=== PATIENT | female | born 1995 ===

== ENCOUNTER → 2025-02-04 | Outpatient (CLI) | payer OTHER | LOC: LAB 16:13 → LAB SHORT 16:13 | DX: O09.93 Supervision of high risk pregnancy, unspecified, third trimester (principal) | CPT/HCPCS: 87081; 87150 ==

== ENCOUNTER 2025-02-25 16:44 | Inpatient (IN) | payer OTHER ==
[2025-02-25] VITALS (13 sets, daily range): BP systolic 112–155; BP diastolic 60–94
[~2025-02-25] VITALS: Ht 165.1 cm; Wt 97.0 kg
[2025-02-25] MEDS ORDERED: Misoprostol 200 MCG Tab PR PRN (17:20)
[2025-02-25] MEDS ORDERED: ePHEDrine Sulfate 50 MG/ML 1ML Injection XX PRN (17:20)
[2025-02-25] MEDS ORDERED: Lactated Ringer's 1,000 ML IV SCH ×3 (17:20)
[2025-02-25] MEDS ORDERED: Lactated Ringer's 1,000 ML IV PRN (17:20)
[2025-02-25] MEDS ORDERED: Acetaminophen 500 MG Tab PO PRN ×2 (17:20→23:55)
[2025-02-25] MEDS ORDERED: Ondansetron HCl 2 MG / ML 2ML Vial IV PRN (17:20)
[2025-02-25] MEDS ORDERED: Methylergonovine Maleate 0.2MG / ML 1ML Amp IM PRN (17:20)
[2025-02-25] MEDS ORDERED: OXYTOCIN/RINGER'S LACTATE 500 ML IV PRN (17:20)
[2025-02-25] MEDS ORDERED: OXYTOCIN/RINGER'S LACTATE 500 ML IV SCH (17:20)
[2025-02-25] MEDS ORDERED: Misoprostol 200 MCG Tab BC PRN (17:20)
[2025-02-25] MEDS ORDERED: Carboprost Tromethamine 250 MCG/ML 1ML Amp IM PRN ×2 (17:20→23:55)
[2025-02-25] MEDS ORDERED: Oxytocin 10 Unit / ML Vial IM PRN (17:20)
[2025-02-25] MEDS ORDERED: FentaNYL 2mcg/ml-Bup 0.1% Epd 250 ML EPI PRN (17:20)
[2025-02-25] MEDS ORDERED: FentaNYL Citrate 50 MCG/ML 2 ML Injection IV PRN (17:25)
[2025-02-25] MEDS ORDERED: Calcium Carbonate 500 MG Tab Chew PO PRN (17:25)
[2025-02-25] MEDS ORDERED: OXYTOCIN/RINGER'S LACTATE 500 ML IV ONE (17:41)
[2025-02-25] MEDS ORDERED: Lactated Ringer's 1,000 ML IV ONE (17:41)
[2025-02-25] MEDS ORDERED: SYNTHROID100 M14 PO (17:43)
[2025-02-25] MEDS ORDERED: ZOLOFT10013 PO (17:45)
[2025-02-25] MEDS ORDERED: Tranexamic Acid 100 ML IV PRN (17:50)
[2025-02-25 18:14] LABS: BASOPHILS ABSOLUTE AUTO 0.03 K/mm3 (0.00-0.23); BASOPHILS PERCENT AUTO 0 % (0-2); EOSINOPHILS ABSOLUTE AUTO 0.25 K/mm3 (0.00-0.68); EOSINOPHILS PERCENT AUTO 3 % (0-6); Hematocrit 34.1 % (33.0-51.0); Hemoglobin 11.4 g/dL (11.5-16.0); IMMATURE GRAN ABSOLUTE AUTO 0.05 K/mm3 (0.00-0.10); IMMATURE GRAN PERCENT AUTO 1 % (0-1); LYMPHOCYTES ABSOLUTE AUTO 1.92 K/mm3 (0.84-5.20); LYMPHOCYTES PERCENT AUTO 19 % (21-46); MONOCYTES ABSOLUTE AUTO 0.65 K/mm3 (0.16-1.47); MONOCYTES PERCENT AUTO 7 % (4-13); Mean Corpuscular HGB Conc 33.4 g/dL (31.5-36.5); Mean Corpuscular Volume 81 fL (80-100); NEUTROPHILS ABSOLUTE AUTO 7.15 K/mm3 (1.96-9.15); NEUTROPHILS PERCENT AUTO 71 % (41-73); Platelet Count 218 K/mm3 (150-400); RDW Coefficient Variation 14.3 % (11.7-14.2); RDW Standard Deviation 41.7 fL (35.1-46.3); Red Blood Cell Count 4.23 M/mm3 (3.80-5.20); White Blood Cell Count 10.05 K/mm3 (4.00-11.30)
[2025-02-25 18:15] LABS: Mean Platelet Volume 13.2 fL (9.1-12.4)
[2025-02-25] MEDS ORDERED: Ibuprofen 400 MG Tab PO PRN (23:45)
[2025-02-25] MEDS ORDERED: Ketorolac Tromethamine 30mg Vial IV PRN (23:45)
[2025-02-25] MEDS ORDERED: Rho(D) Immune Globulin 300 MCG / SYR IM ONE (23:45)
[2025-02-25] MEDS ORDERED: Benzocaine Topical Anesthetic Spray 60GM TOP PRN (23:45)
[2025-02-25] MEDS ORDERED: Witch Hazel/Glycerin PADS TOP PRN (23:45)
[2025-02-25] MEDS ORDERED: Docusate Sodium 100 MG Cap PO PRN (23:45)
[2025-02-26] VITALS (13 sets, daily range): BP systolic 117–151; BP diastolic 56–82
[2025-02-26] MEDS ORDERED: Lactated Ringer's 1,000 ML IV SCH (00:05)
[2025-02-26] MEDS ORDERED: Misoprostol 200 MCG Tab PR PRN (00:05)
[2025-02-26] MEDS ORDERED: Methylergonovine Maleate 0.2MG / ML 1ML Amp IM PRN (00:05)
[2025-02-26] MEDS ORDERED: OXYTOCIN/RINGER'S LACTATE 500 ML IV SCH (00:05)
[2025-02-26] MEDS ORDERED: Lanolin Cream TOP PRN (00:05)
[2025-02-26] MEDS ORDERED: Rho(D) Immune Globulin 300 MCG / SYR IV SCH (03:40)
[2025-02-26] MEDS ORDERED: Misc. Tablet PO SCH ×2 (06:00→09:00)
[2025-02-26] MEDS ORDERED: Sertraline HCl 100 MG Tab PO SCH (09:00)
[2025-02-26] MEDS ORDERED: Prenatal Vit/FE Fumarate/FA 1 Tab PO SCH (09:00)
[2025-02-26] MEDS ORDERED: Levothyroxine Sodium 0.1 MG Tab PO SCH (09:00)
== END 2025-02-26 23:30 | disposition home or self-care (01) | DRG 807 ==
LOC: OBS 16:44 → BC 16:46 → OBS 16:53 → BC 16:54
PROVIDERS: ADMIT Obstetrics & Gynecology
PROC: 10E0XZZ Delivery of Products of Conception, External Approach (ICD-10-PCS; principal; 2025-02-25)
PROC: 0KQM0ZZ Repair Perineum Muscle, Open Approach (ICD-10-PCS; 2025-02-25)
PROC: 10907ZC Drainage of Amniotic Fluid, Therapeutic from Products of Conception, Via Natural or Artificial Opening (ICD-10-PCS; 2025-02-25)
PROC: 4A1HXCZ Monitoring of Products of Conception, Cardiac Rate, External Approach (ICD-10-PCS; 2025-02-25)
DX: O99.284 Endocrine, nutritional and metabolic diseases complicating childbirth (principal); Z37.0 Single live birth; Z3A.39 39 weeks gestation of pregnancy; E03.9 Hypothyroidism, unspecified; O99.344 Other mental disorders complicating childbirth; F41.8 Other specified anxiety disorders; O99.214 Obesity complicating childbirth; Z79.890 Hormone replacement therapy; O69.81X0 Labor and delivery complicated by cord around neck, without compression, not applicable or unspecified; O70.1 Second degree perineal laceration during delivery
CPT/HCPCS: 36415; 85025; 85460; 86850; 86900; 86901; A9270; J1885; J2405; J2590; J2791; J7120